=== PATIENT | female | born 1995 | race Caucasian/White ===

== ENCOUNTER 2017-02-21 10:43 | Emergency (ER) | payer SELFPAY ==
[2017-02-21] MEDS ORDERED: ACETAMINOPHEN 325 MG TABLET PO ONE (11:00)
--- NOTE | 2017-02-21 11:02 | ER Document Report ---
ED Extremity Problem, Lower - General Chief Complaint: Ankle Injury Stated Complaint: ANKLE PAIN Time Seen by Provider: 02/21/17 10:58 - HPI Patient complains to provider of: Injury, Pain, Swelling Location: Ankle - left Occurred: Yesterday - last evening Where: Home Onset/Duration: Sudden Quality of pain: Achy, Throbbing Context: Fell. denies: Laceration Recent injury: Yes Associated symptoms: denies: Chest pain, Chills, Dizzy, Fainting, Fever, Morrow a crack, Morrow a pop, Hurts to breath, Painful ambulation, Rapid heart rate, Seizure, Short of breath, Sweaty, Unable to bear weight, Weak, Other Exacerbated by: Movement, Walking Relieved by: Elevation, Ice, Rest - Related Data Allergies/Adverse Reactions: amoxicillin Allergy (Verified 02/21/17 11:00) Penicillins Allergy (Verified 02/21/17 11:00) Past Medical History - Social History Smoking Status: Current Every Day Smoker Family History: Reviewed & Not Pertinent Review of Systems - Review of Systems Constitutional: No symptoms reported Musculoskeletal: See HPI Skin: No symptoms reported -: Yes All other systems reviewed and negative Physical Exam - Vital signs Vitals: Temp Pulse Resp BP Pulse Ox 97.7 F 101 H 16 116/59 L 97 02/21/17 10:52 02/21/17 10:52 02/21/17 10:52 02/21/17 10:52 02/21/17 10:52 - General General appearance: Appears well, Alert In distress: None - Cardiovascular Pulses: Normal: Dorsalis pedis Normal capillary refill: Yes - Extremities General lower extremity: Normal inspection, Nontender, Normal color, Normal ROM , Normal strength, Normal temperature, Normal weight bearing Calf: Normal, Nontender Ankle: Tender - lateral ankle. No: Abrasion, Deformity, Ecchymosis, Edema, Instability, Laceration, Limited ROM, Unable to bear weight Foot: Normal, Nontender. No: Abrasion, Deformity, Ecchymosis, Edema, Tender 5th metatarsal, Unable to bear weight - Neurological Neuro grossly intact: Yes Cognition: Normal Orientation: AAOx4 Erick Coma Scale Eye Opening: Spontaneous Erick Coma Scale Verbal: Oriented Erick Coma Scale Motor: Obeys Commands Erick Coma Scale Total: 15 - Skin Skin Temperature: Warm Skin Moisture: Dry Skin Color: Normal Skin Turgor: Elastic Course - Re-evaluation Re-evalutation: 02/21/17 11:52 Patient is a 22 year old female who id hemodynamically stable, no acute distress and afebrile. x-ray without evidence of effusion, fracture or dislocation. Patient declining crutches, will miguel wrap her foot. Education on RICE. Patient agrees with plan - Vital Signs Vital signs: Temp Pulse Resp BP Pulse Ox 97.7 F 101 H 16 116/59 L 97 02/21/17 10:52 02/21/17 10:52 02/21/17 10:52 02/21/17 10:52 02/21/17 10:52 - Diagnostic Test Radiology reviewed: Image reviewed, Reports reviewed Discharge - Discharge Clinical Impression: Ankle pain Qualifiers: Chronicity: acute Laterality: left Qualified Code(s): M25.572 - Pain in left ankle and joints of left foot Condition: Good Disposition: HOME, SELF-CARE Instructions: Miguel Wrap ([facility]), Ice & Elevation ([facility]), Sprained Ankle ([facility]) Prescriptions: Ibuprofen [Motrin 800 mg Tablet] 800 mg PO Q8H PRN #30 tab PRN Reason:
[2017-02-21 11:05] VITALS: BP 116/59
--- NOTE | 2017-02-21 11:42 | RADIOLOGY REPORT (SQ) ---
EXAM DESCRIPTION: ANKLE LEFT COMPLETE COMPLETED DATE/TIME: 02/21/2017 11:25 am REASON FOR STUDY: fall, pain and swelling COMPARISON: None. NUMBER OF VIEWS: Three views. TECHNIQUE: AP, lateral, and oblique radiographic images acquired of the left ankle. LIMITATIONS: None. FINDINGS: MINERALIZATION: Normal. BONES: No acute fracture or dislocation. No worrisome bone lesions. JOINTS: No effusions. SOFT TISSUES: No soft tissue swelling. No foreign body. OTHER: No other significant finding. IMPRESSION: NEGATIVE STUDY OF THE LEFT ANKLE. NO RADIOGRAPHIC EVIDENCE OF ACUTE INJURY. TECHNICAL DOCUMENTATION: JOB ID: [id number] [employer]- All Rights Reserved
== END 2017-02-21 12:02 | disposition home or self-care (01) ==
LOC: ER 10:43
DX: M25.572 Pain in left ankle and joints of left foot (principal); M79.89 Other specified soft tissue disorders; F17.200 Nicotine dependence, unspecified, uncomplicated
CPT/HCPCS: 99283